=== PATIENT | male | born 1985 | race Two or more races ===

== ENCOUNTER 2019-01-12 13:49 | Inpatient (IN) | payer MEDICAID ==
[~2019-01-12] VITALS: Ht 182.9 cm; Wt 80.3 kg
--- NOTE | 2019-01-12 14:02 | NUR ---
GRADES 1 THRU 6 HOME TEACHER AT BEDSIDE FOR BLOOD DRAW.
--- NOTE | 2019-01-12 14:15 | NUR ---
DROP BY [employer] FOR MED CLEARANCE. PT DENIES ANY MEDICAL COMPLAINT. PATIENT A/OX2-3 BREATHING EVEN AND UNLABORED, NO SOB NOTED, NEEDS ATTENDED, ATTACHED TO THE RECEIVABLE MANAGER.
[2019-01-12] MEDS ORDERED: KETOROLAC TROMETHAMINE INJ 30 MG/ML VIAL IV ONE (14:30)
[2019-01-12] MEDS ORDERED: VANCOMYCIN 1 GM in IV D5W 250 ML IV ONE (14:30)
[2019-01-12] MEDS ORDERED: PIPERACILLIN /TAZOBACTAM 3.375 G in IV D5W 50 ML IV ONE (14:30)
[2019-01-12] MEDS ORDERED: IV NS 0.9% 1,000 ML BAG IV ONE (14:30)
[2019-01-12] MEDS ORDERED: PERMETHRIN 5% CRM 60 GM TUBE TP ONE (14:30)
[2019-01-12] MEDS ORDERED: KETOROLAC TROMETHAMINE INJ 30 MG/ML VIAL ONE (14:42)
--- NOTE | 2019-01-12 15:00 | NUR ---
PERMETHRIN APPLIED HEAD TO TOE. CHANGED INTO A GOWN. BED SHEETS CHANGED. BLOOD DRAWN AND URINE SENT TO LAB.
[2019-01-12 15:12] LABS: BASOPHILS # (AUTO) 0.1 /CMM (0.0-0.2); BASOPHILS % (AUTO) 1.3 % (0.0-2.0); EOSINOPHILS % (AUTO) 9.2 % (0.0-6.0); HEMATOCRIT 42 % (39-51); HEMOGLOBIN 13.6 g/dL (13.5-17.5); LYMPHOCYTES # (AUTO) 2.2 /CMM (0.8-4.8); LYMPHOCYTES % (AUTO) 23.4 % (20.0-44.0); MEAN CORPUSCULAR HGB CONC 32 g/dl (31.0-36.0); MEAN CORPUSCULAR VOLUME 88 fL (80-96); MONOCYTES # (AUTO) 0.7 /CMM (0.1-1.30); NEUTROPHILS # (AUTO) 5.5 /CMM (1.8-8.9); NEUTROPHILS % (AUTO) 59.1 % (43.0-81.0); PLATELET COUNT (AUTO) 460 /CMM (150-450); RED BLOOD CELL COUNT(AUTO) 4.85 MIL/uL (4.5-6.0); WHITE BLOOD COUNT (AUTO) 9.3 K/uL (4.3-11.0)
[2019-01-12 15:15] LABS: BILIRUBIN,URINE Negative (NEGATIVE); BLOOD, URINE Negative Ery/uL (NEGATIVE); COLOR,URINE Yellow (YELLOW); KETONES,URINE Negative (NEGATIVE); LEUKOCYTE ESTERASE ,URINE Negative (NEGATIVE); NITRITE, URINE Negative (NEGATIVE); PROTEIN,URINE Negative (NEGATIVE); UGLUCOSE Negative (NEGATIVE); UROBILINOGEN,URINE 0.2 EU/dL (0.2)
[2019-01-12 15:44] LABS: ACETAMINOPHEN < 2 ug/ml (10-30); ALANINE AMINOTRANSFERASE 32 U/L (12-78); ALBUMIN 4.1 g/dL (3.4-5.0); ALCOHOL, BLOOD < 3 mg/dL (0-0); ALKALINE PHOSPHATASE 105 U/L (46-116); ASPARTATE AMINOTRANSFERASE 27 U/L (15-37); BILIRUBIN,DIRECT 0.1 mg/dL (0.0-0.2); BILIRUBIN,TOTAL 0.2 mg/dL (0.2-1.0); CALCIUM, SERUM 9.8 mg/dL (8.5-10.1); CARBON DIOXIDE 28 mmol/L (21-32); CHLORIDE 106 mmol/L (98-107); CREATININE 0.7 mg/dL (0.6-1.3); GLUCOSE 79 mg/dL (74-106); POTASSIUM 4.1 mmol/L (3.5-5.1); SALICYLATE < 2.8 mg/dL (2.8-20.0); SODIUM SERUM 144 mmol/L (136-145); TOTAL PROTEIN, SERUM 8.4 g/dL (6.4-8.2); UREA NITROGEN, BLOOD 13 mg/dL (7-18)
--- NOTE | 2019-01-12 16:09 | NUR ---
NURSING SUP GAVE M/S BED 102.
[2019-01-12 16:10] LABS: APPEARANCE,URINE CLEAR (CLEAR)
--- NOTE | 2019-01-12 16:29 | NUR ---
REPORT GIVEN TO DONNY RN.
--- NOTE | 2019-01-12 16:49 | NUR ---
PATIENT TRANSFERRED TO ROOM 102, IN STABLE CONDITION. NO DISTRESS NOTED.
--- NOTE | 2019-01-12 16:49 | NUR ---
RN NOTES RECEIVED PATIENT FROM ER. PATIENT ABLE TO TRANSFER FROM [facility] TO BED. ON ROOM, AIR BREATHING UNLABORED. ALERT, ABLE TO FOLLOW COMMANDS. ABLE TO ANSWER BACK BUT UNCLEAR TO UNDERSTAND. NO COMPLAINTS OF PAIN OF ANY KIND. SKIN ASSESSMENT DONE, PICTURES TAKEN NOTED AND FILED ON CHART.IV SITE NOTED ON THE R FOREARM G [address] INTACT. PATIENT ENCOURAGE TO CALL FOR HELP AND ASSISTANCE. SAFETY MEASURES PUT IN PLACE. WILL WAIT AND CARRY OUT ADMITTING ORDERS
[2019-01-12] MEDS ORDERED: HYDROCODONE/APAP 5/325MG 1 EACH TABLET PO PRN (17:00)
[2019-01-12] MEDS ORDERED: ZOLPIDEM TARTRATE 5 MG TABLET PO PRN (17:00)
[2019-01-12] MEDS ORDERED: ONDANSETRON HCL/PF 4 MG/2 ML VIAL IVP PRN (17:00)
[2019-01-12] MEDS ORDERED: MAG HYDROX/AL HYDROX/SIMETH 30 ML UDC PO PRN (17:00)
[2019-01-12] MEDS ORDERED: MAGNESIUM HYDROXIDE 30 ML UDC PO PRN (17:00)
[2019-01-12] MEDS ORDERED: MORPHINE SULFATE INJ 2 MG/ML DISP.SYRIN IV PRN (17:00)
[2019-01-12] MEDS ORDERED: ACETAMINOPHEN 325 MG TABLET PO PRN (17:00)
[2019-01-12] MEDS ORDERED: FEE PK DOSING 1 MIN EA MC ONE (17:09)
[2019-01-12] MEDS: IV NS 0.9% 1,000 ML IV PRN (19:00)
--- NOTE | 2019-01-12 19:30 | NUR ---
RN NOTES ENDORSED FOR CONTINUITY OF CARE. NOT ON ANY FORM OF DISTRESS. SAFETY MEASURES IN PLACE, ISOLATION IMPLEMENTED. CALL LIGHT WITHIN REACH.
[2019-01-12 20:00] VITALS: BP 105/58
--- NOTE | 2019-01-12 20:00 | NUR ---
RN NOTES RECEIVED PATIENT IN BED, ALERT AND ORIENTED X2, CALM, STABLE ON ROOM AIR, DENIES PAIN AT THIS TIME, FOLLOWS COMMANDS, ANSWERS SIMPLE QUESTIONS, UNKEMPT, DISHEVELLED APPEARANCE, MULTIPLE SCRATCH CARROLL TO SHOULDERS, UPPER ARMS, BILATERAL LEGS, GIVEN IVERMECTIN IN ED AT 1500, WILL GIVE BATH AT MIDNIGHT. PATIENT EATING WITHOUT DISTRESS, WATCHING TV, KEPT SAFE, WILL CONTINUE TO MONITOR
[2019-01-12] MEDS: VANCOMYCIN 1.25 GM in IV D5W 250 ML IV SCH (23:58)
[2019-01-13] MEDS: IV NS 0.9% 1,000 ML IV PRN ×2 (03:34→17:48)
[2019-01-13 04:25] VITALS: BP 110/42
--- NOTE | 2019-01-13 06:22 | NUR ---
RN NOTES Patient alert and oriented x3, room air, denies pain at this time, homeless, from halfway for medical clearance, with dx of severe balanitis, generalized scratches, given Ivermectin cream in the ED at 1500 and given bed bath at 0330, contact isolation for possible scabies, with enlarged glans of penis, voiding spontaneously via urinal, denies dysuria, continue vancomycin IVPB
[2019-01-13] MEDS: VANCOMYCIN 1.25 GM in IV D5W 250 ML IV SCH ×3 (07:27→23:48)
[2019-01-13] MEDS: PANTOPRAZOLE 40 MG TABLET.DR PO SCH (07:27)
[2019-01-13 07:34] LABS: BASOPHILS # (AUTO) 0.1 /CMM (0.0-0.2); EOSINOPHILS % (AUTO) 10.4 % (0.0-6.0); HEMATOCRIT 40 % (39-51); HEMOGLOBIN 12.7 g/dL (13.5-17.5); LYMPHOCYTES # (AUTO) 1.7 /CMM (0.8-4.8); LYMPHOCYTES % (AUTO) 20.5 % (20.0-44.0); MEAN CORPUSCULAR HGB CONC 32 g/dl (31.0-36.0); MEAN CORPUSCULAR VOLUME 88 fL (80-96); MONOCYTES # (AUTO) 0.6 /CMM (0.1-1.30); NEUTROPHILS # (AUTO) 5.2 /CMM (1.8-8.9); NEUTROPHILS % (AUTO) 61.1 % (43.0-81.0); PLATELET COUNT (AUTO) 402 /CMM (150-450); RED BLOOD CELL COUNT(AUTO) 4.54 MIL/uL (4.5-6.0); WHITE BLOOD COUNT (AUTO) 8.5 K/uL (4.3-11.0)
[2019-01-13 08:00] VITALS: BP 128/72
[2019-01-13 08:27] LABS: ALBUMIN 3.2 g/dL (3.4-5.0); BILIRUBIN,TOTAL 0.5 mg/dL (0.2-1.0); CALCIUM, SERUM 8.3 mg/dL (8.5-10.1); CREATININE 0.8 mg/dL (0.6-1.3); MAGNESIUM 1.7 mg/dL (1.8-2.4); PHOSPHORUS 3.3 mg/dL (2.5-4.9); POTASSIUM 3.7 mmol/L (3.5-5.1); TOTAL PROTEIN, SERUM 6.5 g/dL (6.4-8.2)
--- NOTE | 2019-01-13 09:51 | NUR ---
RN NOTES RECEIVED PATIENT IN BED RESTING COMFORTABLY IN MODERATE HIGH BACK REST. A/O X 2-3. NO SIGNS OF DISTRESS NOTED AT THIS TIME. IV FLUIDS ON RFA#18 WITH NS RUNNING @75ML/HR. PATENT AND INTACT. ON CONTACT ISOLATION FOR POSSIBLE SCABIES. SAFETY MEASURES IN PLACE, BED IN LOW LOCKED POSITION WITH SIDE RAILS UP X2. CALL LIGHT WITHIN EASY REACH. WILL CONTINUE TO MONITOR. Addendum: 01/13/19 at 0957 by ADRIANA DRAPER RN time is 07:30
[2019-01-13] MEDS ORDERED: MAGNESIUM OXIDE 400 MG TABLET PO ONE (10:00)
--- NOTE | 2019-01-13 18:56 | NUR ---
RN CLOSING NOTES PATIENT IN BED RESTING COMFORTABLY IN MODERATE HIGH BACK REST. A/O X 3. NO SIGNS OF DISTRESS NOTED THROUGHOUT THE SHIFT. IV FLUIDS ON RFA#18 WITH NS RUNNING @75ML/HR. PATENT AND INTACT. ON CONTACT ISOLATION FOR POSSIBLE SCABIES. SAFETY MEASURES IN PLACE, BED IN LOW LOCKED POSITION WITH SIDE RAILS UP X2. CALL LIGHT WITHIN EASY REACH. WILL ENDORSE TO [employer]S DEVELOPMENT ENGINEER NURSE FOR NICHOLE.
--- NOTE | 2019-01-13 19:25 | NUR ---
RN OPEN NOTES RECEIVED PATIENT AWAKE IN BED. A/0X2-3. NO SIGNS OF DISTRESS OR DISCOMFORT. BREATHING EVEN AND UNLABORED. IV ACCESS IN RFA WITH NS INFUSING, PATENT AND INTACT, NO SIGNS OF REDNESS OR INFILTRATION. BED IN LOW LOCKED POSITION WITH SIDE RAILS X2. CALL LIGHT WITHIN REACH. WILL CONTINUE TO MONITOR.
[2019-01-13 20:00] VITALS: BP 123/52
[2019-01-14 04:00] VITALS: BP 116/72
[2019-01-14] MEDS: IV NS 0.9% 1,000 ML IV PRN ×2 (04:55→23:12)
[2019-01-14 06:38] LABS: BASOPHILS # (AUTO) 0.1 /CMM (0.0-0.2); BASOPHILS % (AUTO) 1.7 % (0.0-2.0); EOSINOPHILS % (AUTO) 9.6 % (0.0-6.0); HEMATOCRIT 39 % (39-51); HEMOGLOBIN 12.4 g/dL (13.5-17.5); LYMPHOCYTES # (AUTO) 1.7 /CMM (0.8-4.8); LYMPHOCYTES % (AUTO) 22.7 % (20.0-44.0); MEAN CORPUSCULAR HGB CONC 32 g/dl (31.0-36.0); MEAN CORPUSCULAR VOLUME 87 fL (80-96); MONOCYTES # (AUTO) 0.7 /CMM (0.1-1.30); MONOCYTES % (AUTO) 9.5 % (2.0-12.0); NEUTROPHILS # (AUTO) 4.2 /CMM (1.8-8.9); NEUTROPHILS % (AUTO) 56.5 % (43.0-81.0); PLATELET COUNT (AUTO) 424 /CMM (150-450); RED BLOOD CELL COUNT(AUTO) 4.46 MIL/uL (4.5-6.0); WHITE BLOOD COUNT (AUTO) 7.5 K/uL (4.3-11.0)
[2019-01-14 06:40] LABS: CALCIUM, SERUM 8.3 mg/dL (8.5-10.1); CREATININE 0.8 mg/dL (0.6-1.3); MAGNESIUM 1.7 mg/dL (1.8-2.4); POTASSIUM 3.8 mmol/L (3.5-5.1)
--- NOTE | 2019-01-14 07:30 | NUR ---
RN OPENING NOTES RECEIVED PATIENT AWAKE IN BED. A/0X2-3. NO SIGNS OF DISTRESS OR DISCOMFORT. BREATHING EVEN AND UNLABORED. IV ACCESS IN RFA WITH NS INFUSING @ 75 ML/HR, PATENT AND INTACT, NO SIGNS OF REDNESS OR INFILTRATION. BED IN LOW LOCKED POSITION WITH SIDE RAILS X2. CALL LIGHT WITHIN REACH. WILL CONTINUE TO MONITOR ACCORDINGLY
--- NOTE | 2019-01-14 07:42 | NUR ---
CLOSING NOTES PATIENT RESTING COMFORTABLY IN BED. A/O X2-3. NO SIGNS OF DISTRESS OR DISCOMFORT. BREATHING EVEN AND UNLABORED. IV ACCESS IN RFA WITH NS INFUSING, PATENT AND INTACT, NO SIGNS OF REDNESS OR INFILTRATION. ALL NEEDS MET. NO SIGNIFICANT CHANGES THROUGH THE NIGHT. BED IN LOW LOCKED POSITION WITH SIDE RAILS X2. CALL LIGHT WITHIN REACH. ENDORSED TO AM SHIFT FOR NICHOLE.
[2019-01-14 08:00] VITALS: BP 128/91
[2019-01-14] MEDS ORDERED: MAGNESIUM OXIDE 400 MG TABLET PO ONE (09:30)
[2019-01-14] MEDS: PANTOPRAZOLE 40 MG TABLET.DR PO SCH (10:50)
[2019-01-14] MEDS: VANCOMYCIN 1.25 GM in IV D5W 250 ML IV SCH ×3 (10:54→23:05)
[2019-01-14 16:00] VITALS: BP 104/52
--- NOTE | 2019-01-14 19:00 | NUR ---
RN justinesurkristen opening notes Received Pt from morning nurse. Pt is alert and orientedX3. Pt is resting in bed comfortably watching TV. Respiration is normal. No SOB. No nausea or vomiting. Pt denies any pain or discomfort at this time. IV sites at RFA # 18 is clean, intact, patent and infusing well @ 75 ml/hr. Contact precautions is maintained. Instructed to call. Safety precautions is maintained. Bed at low position, brakes locked, side rails upX3 and call light is within reach. Will continue to monitor.
--- NOTE | 2019-01-14 19:12 | NUR ---
RN CLOSING NOTES PATIENT IN STABLE CONDITION. ALL NEEDS ATTENDED AND PROVIDED. ALL DUE MEDS GIVEN ORDERED. KEPT PATIENT SAFE AND COMFORTABLE. BED IN LOW/LOCKED POSITION, SIDERAILS UPX2, CALL LIGHT IN REACH. ENDORSED TO NIGHT RN FOR NICHOLE.
[2019-01-14 20:00] VITALS: BP 114/63
[2019-01-15 04:00] VITALS: BP 112/50
--- NOTE | 2019-01-15 07:00 | NUR ---
RN medsurg closing notes Pt is resting in bed comfortably. Awaken easily. Respiration is normal. No SOB. No S/S of distress noted. IV sites at RFA # 18 is clean, intact, patent and infusing well Ns @ 75 ml/hr. Routine meds were given as ordered. Skin care and wound care provided. Kept Pt clean, dry and comfortable. Contact precautions is maintained. Safety precautions is maintained. Bed at low position, brakes locked, side rails upX3 and call light iw within reach. Will endorse to morning nurse for NICHOLE.
[2019-01-15 07:19] LABS: BASOPHILS # (AUTO) 0.1 /CMM (0.0-0.2); BASOPHILS % (AUTO) 1.1 % (0.0-2.0); EOSINOPHILS % (AUTO) 8.4 % (0.0-6.0); HEMATOCRIT 39 % (39-51); HEMOGLOBIN 12.8 g/dL (13.5-17.5); LYMPHOCYTES # (AUTO) 1.7 /CMM (0.8-4.8); LYMPHOCYTES % (AUTO) 21.3 % (20.0-44.0); MEAN CORPUSCULAR HGB CONC 33 g/dl (31.0-36.0); MEAN CORPUSCULAR VOLUME 86 fL (80-96); MONOCYTES # (AUTO) 0.7 /CMM (0.1-1.30); MONOCYTES % (AUTO) 8.4 % (2.0-12.0); NEUTROPHILS % (AUTO) 60.8 % (43.0-81.0); PLATELET COUNT (AUTO) 405 /CMM (150-450); RED BLOOD CELL COUNT(AUTO) 4.51 MIL/uL (4.5-6.0); WHITE BLOOD COUNT (AUTO) 8.1 K/uL (4.3-11.0)
[2019-01-15 07:22] LABS: CALCIUM, SERUM 8.4 mg/dL (8.5-10.1); CREATININE 0.8 mg/dL (0.6-1.3); MAGNESIUM 1.7 mg/dL (1.8-2.4); POTASSIUM 3.9 mmol/L (3.5-5.1)
--- NOTE | 2019-01-15 07:38 | NUR ---
RN MS OPENING NOTES RECEIVED PATIENT IN BED, ALERT AND AWAKE ORIENTED X3. NO SOB. DENIES ANY C/O PAIN NOR DISCOMFORT AT THIS TIME. RFA # 18 INTACT AND PATENT INFUSING NS @ 75ML/HR. CONTACT PRECAUTIONS OBSERVED. BED IN LOWEST POSITION, LOCKED. CALL LIGHT WITHIN REACH. ABLE TO VERBALIZE NEEDS.
[2019-01-15 08:00] VITALS: BP 100/68
[2019-01-15] MEDS ORDERED: MAGNESIUM OXIDE 400 MG TABLET PO ONE (08:00)
[2019-01-15] MEDS: PANTOPRAZOLE 40 MG TABLET.DR PO SCH (08:25)
[2019-01-15] MEDS: VANCOMYCIN 1.25 GM in IV D5W 250 ML IV SCH (08:44)
--- NOTE | 2019-01-15 10:27 | NUR ---
Social service consult requested by DANIELLE Livingston for placement. Pt. is a 33 year old male who was admitted to [facility] for Balanitis. Pt. was brought to [facility] from senior care by the [employer] for evaluation of multiple generalized body wounds that appear like ecchymosis and significant balanitis. Per report, pt. was released from senior care where he stayed for one day and was charged for misdemeanor. sW met with the pt. bedside. Pt. is alert and oriented x 4. Pt. appeared disheveled and unkempt. Pt. is not very forthcoming with information. Pt. states he has been living at [facility] for years. Pt. wants to be discharged back to the intermediate when medically cleared. Pt. denies any alcohol and cigarette use. Pt. smokes marijuana. Pt. states he is not on parole. Pt. will require a tap card upon discharge. Homeless patient Waiver form was placed in pt's chart to sign upon discharge along with a list of following resources: [facility] located at [address] [facility] ; [facility], [address] [place] [phone], [place] ; [facility] [place], [address] [facility] ; [facility] Homeless Resource Directory which includes food stamps, transitional housing, showers and hot meals etc; Mental Health clinics such as [facility] ; [facility] ; Health clinics;[facility] and Alcohol treatment centers such as [facility], ; [facility] Substance Abuse Hotline and [facility] .
[2019-01-15] MEDS: Magnesium 1GM/D5W 100ML PREMIX 100 ML IV SCH ×2 (11:16→12:35)
--- NOTE | 2019-01-15 11:52 | NUR ---
WOUND CARE CONSULT: PT PRESENTS WITH SKIN DISCOLORATION AND SCRATCH CARROLL WELL VERY RED, SWOLLEN PENIS WITH RASH AND GROIN FOLD RASH, PRESENT ON ADMISSION. RECOMMENDATIONS MADE FOR SKIN CARE AND PROTECTION. DISCUSSED WITH NURSING STAFF. WILL SEE PRN. PATRICIA IN AGREEMENT WITH PLAN OF CARE. Addendum: 01/15/19 at 1153 by NISHA RODRIGUEZ WNDNU Amended: Links added.
[2019-01-15] MEDS ORDERED: CLOTRIMAZOLE 1% 15 GM TUBE TP SCH (12:00)
--- NOTE | 2019-01-15 13:10 | NUR ---
MS WOOL HAT FINISHER/CLOSING NOTES ALERT AND ORIENTED X3. DENIES ANY C/O PAIN NOR DISCOMFORT. FOR DISCHARGE WITH DISCHARGE INSTRUCTION AND PACKET GIVEN TO PATIENT ALONG WITH TAP CARD AND ASSISTED INFORMATION. PATIENT VERBALIZES UNDERSTANDING. PER PATIENT, HE IS GOING TO [facility]OL[employer]ER [facility] ASSISTED IN [place] AND STATED, "I JUST WANT TO BE IN THE STREET." HOMELESS WAIVER FORM SIGNED BY PATIENT. ALL BELONGINGS ACCOUNTED FOR, IV ACCESS REMOVED WITH CATHETER TIP INTACT WITH GAUZE DRESSING IN PLACE. AMBULATORY WITH STEADY GAIT. PATIENT LEFT IN STABLE CONDITION.
[2019-01-15] MEDS ORDERED: VANCOMYCIN 1 GM in IV D5W 250 ML IV SCH (16:00)
== END 2019-01-15 13:15 | disposition home or self-care (01) | DRG 501 ==
LOC: ER 13:52 → MEDSG1 16:36
PROVIDERS: ADMIT Nurse Practitioner Acute Care; ATTEND Nurse Practitioner Acute Care
DX: N48.1 Balanitis (principal); B86 Scabies; F12.11 Cannabis abuse, in remission; N47.2 Paraphimosis; L53.9 Erythematous condition, unspecified; Z59.0 Homelessness; N48.89 Other specified disorders of penis
CPT/HCPCS: 36415; 80048-TC; 80053-TC; 80061-TC; 80076-TC; 80202-TC; 80305; 81000-TC; 83735-TC; 84100-TC; 85025-TC; 87040-TC; 87081-TC; 87086-TC; G0378; G0480; J1885; J2543; J3370; J3475; J7030; J7060